=== PATIENT | female | born 1955 | race Caucasian/White ===

== ENCOUNTER 2018-07-08 13:05 | Emergency (ER) | payer OTHER ==
--- NOTE | 2018-07-08 13:37 | EDPHY ---
H & P Stated Complaint: right breast red and painful Time Seen by Provider: 07/08/18 13:34 HPI/ROS: CHIEF COMPLAINT: Right breast pain HISTORY OF PRESENT ILLNESS: The patient is a 63-year-old female who is visiting from [place]. She has a previous history of episodes of mastitis. 25 years ago she states that she had a breast abscess that required repeated aspiration. Then 5 years ago she had a mastitis that required hospitalization and IV antibiotics. She does not remember which antibiotics. Today she noticed some fatigue and tenderness and mild erythema to her right breast. She is hoping to have caught it early and to avoid hospitalization. She has not had a fever. She flew here from [place] yesterday and last night assumed that her fatigue was from traveling. However this morning she woke up still fatigued with erythema and pain to her right breast as well. No discharge. No chest pain. No shortness of breath. No GI symptoms. No vaginal symptoms. Severity: Moderate Modifying factors: None REVIEW OF SYSTEMS: Constitutional: denies: chills, fever, recent illness, recent injury EENTM: denies: blurred vision, double vision, nose congestion Respiratory: denies: cough, shortness of breath Cardiac: denies: chest pain, irregular heart rate, lightheadedness, palpitations Gastrointestinal/Abdominal: denies: abdominal pain, diarrhea, nausea, vomiting, blood streaked stools Genitourinary: denies: dysuria, frequency, hematuria, pain Musculoskeletal: denies: joint pain, muscle pain Skin: See above Neurological: denies: headache, numbness, paresthesia, tingling, dizziness, weakness Hematologic/Lymphatic: denies: blood clots, easy bleeding, easy bruising Immunologic/allergic: denies: HIV/AIDS, transplant 10 systems reviewed and negative except as noted EXAM: GENERAL: Well-appearing, well-nourished and in no acute distress. HEAD: Atraumatic, normocephalic. EYES: Pupils equal round and reactive to light, extraocular movements intact, sclera anicteric, conjunctiva are normal. ENT: TMs normal, nares patent, oropharynx clear without exudates. Moist mucous membranes. NECK: Normal range of motion, supple without lymphadenopathy or JVD. LUNGS: Breath sounds clear to auscultation bilaterally and equal. No wheezes rales or rhonchi. HEART: Regular rate and rhythm without murmurs, rubs or gallops. ABDOMEN: Soft, nontender, normoactive bowel sounds. No guarding, no rebound. No masses appreciated. BACK: No CVA tenderness, no spinal tenderness, step-offs or deformities EXTREMITIES: Normal range of motion, no pitting or edema. No clubbing or cyanosis. NEUROLOGICAL: Cranial nerves II through XII grossly intact. Normal speech, normal gait. 5/5 strength, normal movement in all extremities, normal sensation , normal reflexes PSYCH: Normal mood, normal affect. SKIN: Right breast slightly erythematous and warm, deep mass palpable, slightly tender. Gland verses abscess. No discharge. Slightly dimpled nipple which patient states is baseline. No retractions. Source: Patient Exam Limitations: No limitations - Medical/Surgical History Hx Asthma: No Hx Chronic Respiratory Disease: No Hx Diabetes: No Hx Cardiac Disease: No Hx Renal Disease: No Hx Cirrhosis: No Hx Alcoholism: No Hx HIV/AIDS: No Hx Splenectomy or Spleen Trauma: No Other PMH: mastitis - Family History Significant Family History: Cancer (Breast cancer) - Social History Smoking Status: Former smoker Alcohol Use: Sober Drug Use: None Constitutional: Initial Vital Signs Temperature (C) 37.1 C 07/08/18 13:14 Heart Rate 69 07/08/18 13:14 Respiratory Rate 16 07/08/18 13:14 Blood Pressure 170/102 H 07/08/18 13:14 O2 Sat (%) 96 07/08/18 13:14 O2 Delivery Mode Room Air Allergies/Adverse Reactions: codeine Allergy (Verified 07/08/18 13:17) Home Medications: Medication Instructions Recorded Aspirin 07/08/18 Sulfamethox/Tmp 800/160 mg 1 tab PO BID #20 tab 07/08/18 [Bactrim Ds] Medical Decision Making - Diagnostics Imaging: Discussed imaging studies w/ body recall instructor Radiologist ED Course/Re-evaluation: 2:30 p.m. we discussed the ultrasound results. Lab work is also reassuring. Will start on oral antibiotics. Patient is reassured by this. Discussed indications for returning. Patient and family are reassured. Differential Diagnosis: Partial list of the Differential diagnosis considered include but were not limited to; mastitis, cellulitis, abscess and although unlikely based on the history and physical exam, I also considered breast cancer, trauma, PE. I discussed these differential diagnoses and the plan with the patient as well as the usual and expected course. The patient understands that the diagnosis is provisional and that in medicine we are not always correct and that further workup is often warranted. Usual and customary warnings were given. All of the patient's questions were answered. The patient was instructed to return to the emergency department should the symptoms at all worsen or return, otherwise to followup with the physician as we discussed. - Data Points Medications Given: Discontinued Medications Ceftriaxone Sodium/Dextrose (Rocephin 1 Gm (Premix)) 50 mls @ 100 mls/hr IV EDNOW ONE PRN Reason: Protocol Stop: 07/08/18 13:59 Last Admin: 07/08/18 15:10 Dose: Not Given Vancomycin HCl 1 gm/ Sodium (Chloride) 250 mls @ 250 mls/hr IV EDNOW ONE PRN Reason: Protocol Stop: 07/08/18 14:51 Last Admin: 07/08/18 15:11 Dose: Not Given Trimethoprim/Sulfamethoxazole (Bactrim Ds) 1 ea PO EDNOW ONE PRN Reason: Protocol Stop: 07/08/18 14:41 Last Admin: 07/08/18 14:49 Dose: 1 ea Point of Care Test Results: CBC CBC Collection Date 07/08/18 CBC Collection Time 14:29 WBC 8.6 RBC 4.23 HGB 13.8 HCT 39.3 PLT 244 Neut # 5.5 Neut 63.4 LYMPH # 2.3 LYMPH 26.9 Other WBC # 0.8 Other WBC 9.7 MCV 92.9 Chemistry 07/08/18 14:28 POC Sodium 138 mEq/L mEq/L (135-145) POC Potassium 3.6 mEq/L mEq/L (3.3-5.0) POC Chloride 103.0 mEq/L mEq/L (97-110) POC Total CO2 24 mEq/L mEq/L (22-31) POC BUN 10 mg/dL mg/dL (7-23) POC Creatinine 0.7 mg/dL mg/dL (0.6-1.0) POC Glucose 98 mg/dL mg/dL (70-100) POC Calcium 9.7 mg/dL mg/dL (8.5-10.4) Departure - Departure Disposition: Home, Routine, Self-Care Clinical Impression: Mastitis Condition: Good Instructions: Sulfamethoxazole/Trimethoprim (By mouth), Mastitis (ED) Additional Instructions: Return to the emergency department if you develop fevers worsening pain or erythema. Referrals: Higinio Real, [Doctor of Osteopathy] - 2-3 days without fail Prescriptions: Sulfamethox/Tmp 800/160 mg [Bactrim Ds] 1 tab PO BID #20 tab
[2018-07-08] MEDS ORDERED: VANCOMYCIN 1 GM in NS 250 ML IV ONE (13:52)
[2018-07-08] MEDS ORDERED: SULFAMETHOX/TMP 800/160 MG 1 TAB PO ONE (14:40)
[2018-07-08 15:38] VITALS: BP 145/90
== END 2018-07-08 15:01 | disposition home or self-care (01) ==
LOC: CED 13:05
DX: N61.0 Mastitis without abscess (principal); Z85.3 Personal history of malignant neoplasm of breast
CPT/HCPCS: 76641-PO; 80048-ER; 99284-ER; J3370